=== PATIENT | female | born 1980 | race Caucasian/White ===

== ENCOUNTER 2017-01-30 09:50 | Emergency (ER) | payer SELFPAY ==
[~2017-01-30] VITALS: Ht 167.6 cm; Wt 86.4 kg
[2017-01-30 09:51] VITALS: BP 129/83; PULSE 82; RESP 18; O2SAT 100
--- NOTE | 2017-01-30 10:02 | ED.REPORT ---
HPI-Chest Pain Under 40 Date of Service Jan 30, 2017 ED Provider: Harjit Garvey MD The pt is a 36 y/o female with no pertinent hx who presents to the ED complaining of left sided chest pain that radiates to her left axilla and back, onset 6 days ago. Her pain suddenly worsened 3 days ago. She describes it as a "7/10 stabbing pain". Her pain worsens with deep breathing and when laying on the left side. It is mildly relieved when she raises her left arm above her head. She took Ibuprofen for the pain which provided no relief. She denies fever. She has never experienced similar sx before. She is not on control or other hormonal medication. The pt noted a lump in her left breast 6 months ago and states it seems to be increasing in size over time. She is scheduled for an ultrasound scheduled tomorrow. Nursing Notes Stated Complaint: CHEST PAIN Chief Complaint: Chest Pain-Non Cardiac Nature Nursing Notes Reviewed: Yes ([employer], Ailvxing net not reconciled) Allergies: Coded Allergies: No Known Allergies (Unverified , 01/30/17) Scheduled PRN Hydrocodone-Acetaminophen 5-325 mg (Hydrocodone-Acetaminophen 5-325 mg) 1 Each Tablet 1-2 TABLET PO Q6H PRN PRN For Pain General Time Seen by MD: 10:03 Chief Complaint Chest pain Hx Obtained From: Patient Arrived By: Walk-in Sudden in Onset?: Yes Onset Occurred: 6 days ago Symptom Duration: Since onset Location: : Chest left Quality: Stabbing Radiation: : Arm left (left axilla): Back Severity: Current: Pain level 7 out of 10 Severity: Maximum: Severe Recent Healthcare: No recent doctor visit Past Medical History Past Medical History none reported Past Surgical History Reports: Appendectomy, Tonsillectomy Smoking History Unknown if Ever Smoker Social History Drug Use: THC Ambulatory Status Independent Review of Systems Reports: chest pain radiating to left axilla and back Constitutional: Denies: Fever Cardiovascular: Reports: Chest pain Complete sys rev & neg: except as marked. Physical Exam Initial Vital Signs Vital Signs (First) Date Time Temp Pulse Resp B/P Pulse Ox O2 Delivery O2 Flow Rate FiO2 01/30/17 09:51 36.8 82 18 129/83 100 Room Air Initial VS: Reviewed, Vital signs normal Head / Eyes: Atraumatic, Normocephalic Neck: Supple, Non-tender, Full range of motion Abdomen / GI: Soft, Non-tender, No guarding, No rebound, No distention Extremities: Vascular intact, Neuro intact, No swelling, No tenderness Skin: Warm, Dry, No cyanosis Neurologic: Alert, Oriented, Nonfocal General/Constitutional: Awake, Alert, Well appearing, Cooperative Behavior: Positive: Anxious Respiratory / Chest: Atraumatic, Breath sounds NL, Breath sounds = bilat, No respiratory distress, No rales, No rhonchi, No wheezing No palpable mass in the left breast. No abscess. Cardiovascular: Heart rate NL, Regular rhythm, Heart sounds NL, No gallop, No murmurs, No rubs Interpretation & Diagnostics Lab Results Interpretation Result Diagram: 01/30/17 1030 01/30/17 1030 Test 01/30/17 10:30 White Blood Count 8.1th/mm3 (3.8-10.1) Red Blood Count 4.65mil/mm3 (3.90-5.20) Hemoglobin 14.5g/dL (12.0-15.6) Hematocrit 42.2% (35.0-46.0) Mean Corpuscular Volume 90.8fL (81-100) Mean Corpuscular Hemoglobin 31.2pg (27.0-35.0) Mean Corpuscular Hemoglobin Concent 34.4% (32.0-37.0) Red Cell Distribution Width 12.9% (12.3-15.4) Platelet Count 317bil/L (150-400) Neutrophils (%) (Auto) 65.6% (40-74) Lymphocytes (%) (Auto) 23.8% (14-46) Monocytes (%) (Auto) 9.0% (4-12) Eosinophils (%) (Auto) 1.0% (0-5) Basophils (%) (Auto) 0.4% (0-3) D-Dimer 0.52mg/L FEU (<0.50) Sodium Level 138mEq/L (134-144) Potassium Level 4.1mEq/L (3.5-5.2) Chloride Level 100mEq/L (97-108) Carbon Dioxide Level 20mmol/L (18-29) Blood Urea Nitrogen 11mg/dL (6-20) Creatinine 0.49mg/dL (0.57-1.00) Estimat Glomerular Filtration Rate 205mL/min (>59) Glucose Level 98mg/dL (60-99) Calcium Level 8.9mg/dL (8.5-10.1) Magnesium Level 1.9mg/dL (1.6-2.6) Total Bilirubin 0.2mg/dL (0.0-1.2) Aspartate Amino Transf (AST/SGOT) 22U/L (0-50) Alanine Aminotransferase (ALT/SGPT) 16U/L (0-32) Alkaline Phosphatase 77U/L (25-150) Troponin T 0.010ug/L (0.0-0.011) Total Protein 7.5g/dL (6.4-8.4) Albumin 4.4g/dL (3.4-5.0) Hold Tidwell Top Tube Received (Received) Lab Results Interpretation: US left breast negative as per science technicians - no abscess, no masses CBC normal and CMP normal troponin negative D-dimer elevated ECG Interpretation ECG Interpretation: Normal sinus rhythm. Rate 79. No signs of a PE. Time: 10:14 Interpreted by: ED physician X-Ray Chest Interpretation Chest Xray Interpretation: IMPRESSION: No acute cardiopulmonary disease process. Dictated by: Indira Austin MD, PhD on 01/30/2017 at 9:35 Approved by: Indira Austin MD, PhD on 01/30/2017 at 9:36 View: Portable, AP & lat Interpretation / Wet Read by: Interpret - Radiologist CT Chest Interpretation IMPRESSION: No evidence of pulmonary embolism. No acute consolidation. Dictated by: Que Solis M.D. on 01/30/2017 at 13:48 Approved by: uQe Solis M.D. on 01/30/2017 at 13:53 Study type: CT pulm angiogram Interpretation / Wet Read by: Interpret - Radiologist Re-Eval/Medical Decision Med Decision/Clinical Course This is a 36-year-old female presents complaining of sudden worsening of severe left pleuritic chest pain. She has been a concern over left breast mass in recent months, she had an ultrasound and is scheduled for an outpatient ultrasound tomorrow, Saturday increasing breast pain, but then he developed this increasing acute, severe pleuritic chest discomfort. She has no previous DVT or PE or overt risk factors that I was able to determine. Is no family history of breast pathology that she is aware of. Exam she has normal vitals, she is not tachycardic hypotensive or hypoxic. She is uncomfortable clutching her left chest. She has got a mass in her left breast, but on clinical exam on unable to really palpate it or any abnormality. There are no clinical overt signs of abscess or cellulitis or mastoiditis. There is no adenopathy. The chest pleuritic discomfort she had is not localized to the breast itself. He is normal, chest x-ray is negative, but d-dimer is elevated since CT angiogram was negative. Ultrasound left breast revealed no masses or pathology on ultrasound, although etiology just related and has been previously. She has been told after prior ultrasound, that an outpatient mammogram is still recommended. At this point a dangerous etiology is not determined. Routine and return precautions reviewed. Patient's being discharged with a course of ibuprofen, and a few hydrocodone for symptoms relief. Source of Hx: Old records Re-Evaluation/Progress : Time of Eval: 16:13 Re-Evaluation/Progress Note: Rechecked pt. Discussed lab results, imaging results, diagnosis and plan to discharge. Pt understands and agrees with the plan. F/U instruction and RTER warning given. All questions addressed. Differential Diagnosis: Positive: Chest pain, acute, Pleurisy, Negative: Acute coronary syndrome, Acute myocardial infarct, Dysrhythmia, Esophageal rupture, Gun shot wound chest, Pneumomediastinum, Pneumonia, Pneumothorax, Pulmonary edema, Pulmonary embolism, Rib fracture, Stab wound chest, Stable angina Counseled Regarding: Diagnosis, Lab results, Need for follow-up, When/why to return to ED Discharge & Departure Primary Impression: Pleurisy Disposition: Home Discharge Condition All VS Reviewed: Yes Condition: Stable Additional Instructions: 1. A dangerous cause of the pleuritic chest pain was not identified. 2. Your EKG, blood work, and CT scan were normal. No masses or abnormalities were appreciated in the left breast. 3. Activities as tolerated 4. Take ibuprofen 400-800mg three times a day for pain. 5. If needed for more severe pain take hydrocodone/APAP 5/325 1-2 tabs up t every 6 hours. Please use sparingly. Note this medication as continue narcotic and causes drowsiness, no driving for at least 4 hours after taking. 6. Return if new, worsening or uncontrolled symptoms occur. Referrals: Purnima Girard (PCP) Scribe Attestation Portions of this note were transcribed by Kimberly Hadley. I,, personally performed the history,physical exam and medical decision-making;I reviewed and confirmed the accuracy of the information in the transcribed note. Signed by Luke Schroeder. 01/30/17 copies to: Purnima Girard Matthew F MD Jan 30, 2017 10:02 Kimberly Hadley Jan 30, 2017 10:10
[2017-01-30 10:35] LABS: BASOPHILS % (AUTO) 0.4 % (0-3); Mean Corpuscular Hemoglobin 31.2 pg (27.0-35.0); Mean Corpuscular Volume 90.8 fL (81-100); NEUTROPHILS % (AUTO) 65.6 % (40-74); Platelet Count 317 bil/L (150-400)
--- NOTE | 2017-01-30 10:37 | DRSVH ---
PROCEDURE: X-RAY CHEST, TWO VIEWS ([id number]) INDICATIONS: chest pain/shortness of breath TECHNIQUE: 2 views of the chest were acquired. COMPARISON: None. FINDINGS: Surgical changes and devices: None. Lungs and pleura: No pleural effusions or pneumothorax. Lungs are clear. Mediastinum: Mediastinal contours are normal. Heart size is normal. Bones and chest wall: No suspicious bony abnormalities. Soft tissues appear unremarkable. IMPRESSION: No acute cardiopulmonary disease process. Dictated by: Indira Austin MD, PhD on 01/30/2017 at 9:35 Approved by: Indira Austin MD, PhD on 01/30/2017 at 9:36
[2017-01-30 10:58] LABS: TROPONIN T 0.01 ug/L (0.0-0.011)
[2017-01-30 11:09] LABS: Magnesium 1.9 mg/dL (1.6-2.6)
[2017-01-30] MEDS ORDERED: Ondansetron 2 mg/mL 2 mL Inj IVPUSH ONE (11:20)
[2017-01-30] MEDS: HYDROmorphone 0.5 mg/0.5 mL iSecure Syringe IVPUSH PRN ×3 (11:27→16:34)
[2017-01-30 11:29] VITALS: BP 102/61; PULSE 71; RESP 22; O2SAT 99
--- NOTE | 2017-01-30 13:55 | DRSVH ---
PROCEDURE: CT ANGIO CHEST PULMONARY EMBOLISM ([id number]) INDICATIONS: Pleuritic CP, +Dimer TECHNIQUE: After the administration of intravenous contrast, 2 mm thick sections acquired from the pulmonary api julee to the posterior costophrenic angles. 3-dimensional maximum intensity projection (MIP) coronal a nd sagittal reformats were then acquired through the thorax. For radiation dose reduction, the follo wing was used: automated exposure control, adjustment of mA and/or kV according to patient size. COMPARISON: None. FINDINGS: Image quality: Excellent. Pulmonary arteries: Pulmonary arteries are normal in size, and demonstrate no intraluminal filling d efects to suggest central pulmonary embolism. Lungs and pleura: Lungs are clear. No pleural effusions or pneumothorax. Central and peripheral ai rways are patent. Mediastinum: Heart size is borderline enlarged, without pericardial effusion. No mediastinal or hil ar adenopathy. Thoracic aorta is normal in caliber and enhancement. Esophagus is normal in caliber, without hiatal hernia. Bones and chest wall: No suspicious bony lesions. Ribs and thoracic spine appear intact throughout. Thyroid gland negative. No axillary or supraclavicular adenopathy. Abdomen: Visualized upper abdominal solid organs appear normal in the early arterial phase of enhanc ement. IMPRESSION: No evidence of pulmonary embolism. No acute consolidation. Dictated by: Que Solis M.D. on 01/30/2017 at 13:48 Approved by: Que Solis M.D. on 01/30/2017 at 13:53
[2017-01-30 14:52] VITALS: BP 107/59; PULSE 68; RESP 15; O2SAT 98
[2017-01-30] MEDS ORDERED: HYDR-4003 PO (16:27)
[2017-01-30 16:53] VITALS: BP 107/52; PULSE 73; RESP 20; O2SAT 97
--- NOTE | 2017-01-31 08:00 | DRSVH ---
ULTRASOUND OF LEFT BREAST: 01/30/2017 CLINICAL: Palpable left lump and pain. Comparison is made to exam dated: 08/15/2016 mammogram - [facility]. Ultrasound of the left breast was performed. Schwartz scale images of the real-time examination were rev iewed. There is no correleate for the left upper outer breast clinical area of concern. IMPRESSION: INCOMPLETE: NEEDS ADDITIONAL IMAGING EVALUATION - FOLLOW-UP RECOMMENDED There is no abnormality seen in the left breast to correspond with the area of clinical concern. Note is made that the patient is scheduled for a 6 month follow up mammogram of her left breast in tob, 2016. Recommend that the patient undergo the mammogram and a further recommendation will be m shayne at that time. Findings and recommendations discussed with Dr. Garvey via telephone ([phone]) at 14:00 on 01/30. This exam was interpreted at Station ID: [id number]. Electronically Signed By: Jaydon Aparicio M.D. cj/:01/30/2017 14:49:54 letter sent: Additional Imaging Needed Ultrasound BI-RADS: 0 Indeterminate Additional referring physicians: REYNOLD WALDEN
== END 2017-01-30 16:53 | disposition home or self-care (01) ==
LOC: SED 09:50
DX: R09.1 Pleurisy (principal)
CPT/HCPCS: 36415; 71020; 71275; 76642; 80053; 82948; 83735; 84484; 85025; 85378; 93005; 96374; 96375; 96376; 99285; J1170; J2405; Q9967